=== PATIENT | male | born 1945 | race Caucasian/White ===

== ENCOUNTER 2016-10-05 09:00 | Observation (INO) | payer MEDICARE, OTHER ==
[~2016-10-05] VITALS: Ht 182.9 cm; Wt 98.5 kg
[~2016-10-05 09:00] MED LIST: AFRI0.052 EACH NARE; ALPR.25 PO; CLON0.1T PO; FLEC1TAB8 PO; LISI-519 PO; MECL-62 PO; MUCI30TA2 PO; PRED10PA PO; SYMB80AE INH; VENTAER INH; VERA120T3 PO; VITA100064 PO; VITA500T49 PO; VITA50TA30 PO; ZOLO50TA PO
[2016-10-05] MEDS ORDERED: SODIUM CHLORIDE 0.9% INJ 100 ML ONE (09:20)
[2016-10-05] MEDS ORDERED: ceFAZolin INJ 1,000 MG VIAL ONE (09:20)
[2016-10-05] MEDS ORDERED: OXYGENDME NAS.CANULA (09:28)
[2016-10-05 09:29] VITALS: BP 123/73; PULSE 76; RESP 20; TEMP 98.1; O2SAT 95
[2016-10-05] MEDS ORDERED: ceFAZolin 1,000 MG/NS 100 ML IV SCH ×2 (09:30)
[2016-10-05] MEDS ORDERED: SODIUM CHLORID 0.9% 500 ML IV PRN (09:45)
[2016-10-05] MEDS ORDERED: POVIDONE IODINE 5% (ANTISEPSIS KIT) 4 APPLICATIONS EACH NARE PRN (09:45)
[2016-10-05] MEDS ORDERED: METOPROLOL TARTRATE 25 MG TAB PO PRN (09:45)
[2016-10-05] MEDS ORDERED: INSULIN HUMAN REGULAR 1,000 UNITS/10 ML VIAL SQ PRN (09:45)
[2016-10-05] MEDS ORDERED: CHLORHEXIDINE GLUCONATE 2 % 1 PACK (2 CLOTHS) TOPICAL PRN (09:45)
[2016-10-05] MEDS ORDERED: LACTATED RINGER'S 1000 ML IV PRN (09:45)
[2016-10-05 09:49] LABS: AUTOMATED NEUTROPHIL # 6.3 TH/MM3 (1.8-7.7); BASOPHIL # 0.1 TH/MM3 (0-0.2); BASOPHIL % 0.9 % (0.0-2.0); EOSINOPHIL # 0.2 TH/MM3 (0-0.4); EOSINOPHIL % 1.5 % (0.0-4.0); HEMATOCRIT 39.8 % (39.0-51.0); HEMO FLAGS DIFF FINAL; LYMPH % 28.4 % (9.0-44.0); MEAN CELL VOLUME 86.4 FL (80.0-100.0); MEAN CORPUSCULAR HEMOGLOBIN 29.4 PG (27.0-34.0); MONO % 9.3 % (0.0-8.0); NEUT % 59.9 % (16.0-70.0); PLATELET COUNT 184 TH/MM3 (150-450); RED CELL DISTRIBUTION WIDTH 15.4 % (11.6-17.2); WHITE BLOOD COUNT 10.5 TH/MM3 (4.0-11.0)
[2016-10-05 10:02] LABS: PROTHROMBIN TIME - PATIENT 10.9 SEC (9.8-11.6)
[2016-10-05] MEDS ORDERED: MIDAZOLAM HCL 2 MG/2 ML VIAL ONE ×2 (10:30→12:35)
[2016-10-05] MEDS ORDERED: IOHEXOL 350 MG/ML 50 ML BTL (for RAD DIAG) ONE (12:00)
[2016-10-05] MEDS ORDERED: PHENYLEPH/NS 1000 MCG/10 ML SYR IV ONE (12:00)
[2016-10-05] MEDS ORDERED: PROPOFOL 200 MG/20 ML AMP IV ONE (12:00)
[2016-10-05] MEDS ORDERED: ePHEDrine/NS 25 MG/5 ML SYR IV ONE (12:00)
[2016-10-05] MEDS ORDERED: MORPHINE SULFATE 4 MG/ML INJ IV PUSH PRN (12:15)
[2016-10-05] MEDS ORDERED: ALPRAZolam 0.25 MG TAB PO PRN (12:15)
[2016-10-05] MEDS ORDERED: BELLADONNA ALKALOIDS/OPIUM 60 MG SUPP RECTAL PRN (12:15)
[2016-10-05] MEDS ORDERED: ACETAMINOPHEN 650 MG/20.3 ML UDC PO PRN (12:15)
[2016-10-05] MEDS ORDERED: ACETAMINOPHEN/HYDROcodone 325 MG/5 MG TAB PO PRN (12:15)
--- NOTE | 2016-10-05 12:24 | PD.OP ---
Operative Report Date of Surgery: Oct 05, 2016 Preoperative Diagnosis: Positive urine cytology with history of high-grade bladder cancer Postoperative Diagnosis: Positive urine cytology with history of high-grade bladder cancer and findings of small bladder tumor 0.5 cm in diameter Procedure: Cystoscopy with bilateral retrograde studies with bilateral collecting system washings, multiple bladder biopsies with fulguration Anesthesia: Spinal Surgeon: Laurent Parker Survival Equipment Repairer(s): None Resident Surgeon: None Operation and Findings: 71 year-old male with history of high-grade bladder cancer and recent positive urine cytology. Decision is made for patient to the operating room to undergo cystoscopy with bilateral retrograde study and bilateral urine cytologies from the collecting systems as well as possible TURBT. Risk and benefits were discussed preoperatively and he was willing to proceed. The patient was brought to the operating room identified by myself as Julio Burgos. He was placed in the dorsal lithotomy position, prepped and draped in the usual fashion , received preprocedure antibiotics, and spinal anesthesia was administered. 22 Lao cystoscope was inserted in the bladder using the 30 lens and there were some frondular tumor-like tissue located on the left area of the bladder neck. The posterior bladder wall was erythematous but no bladder tumor was identified. The trigone also look to have a frondular appearance with erythema present. Using the cold cup biopsy forcep bladder biopsies were taken from the left bladder neck region, trigone region and posterior wall. These were sent to pathology. A 5 Lao catheter was inserted in the left ureteral orifice and up the ureter into the kidney. Normal saline was used to flush the collecting system and this was sent for urine cytology. A left retrograde study was performed showing a normal collecting system and ureter. A 5 Lao opening catheter was inserted into the right ureteral orifice and extended up into the kidney where saline wash was performed. This was then sent to pathology. Retrograde study was then performed demonstrating a normal right collecting system and normal right ureter. The 22 Lao cystoscope was inserted back into the bladder with the 70 lens to evaluate these areas were clearly. The [place]rera resectoscope with the rollerball was then inserted and the small area was fulgurated on the left bladder neck region the trigone region and a larger the posterior wall. All areas of erythema were rollerballed. A 20 Lao [place] tip catheter was inserted at the completion procedure. He tolerated procedure well. He was awoken and transferred to recovery in stable condition. Laurent Parker DO Oct 05, 2016 12:24
[2016-10-05] MEDS ORDERED: DO NOT ADM ANY ANTICOAGULANT DRUGS PRN (12:45)
[2016-10-05] MEDS: SODIUM CHLOR 0.45% 1000 ML INJ 1,000 ML IV SCH (12:50)
[2016-10-05] MEDS: LISINOPRIL 5 MG TAB PO SCH (13:00)
[2016-10-05] MEDS: guaiFENesin E.R. 600 MG TAB PO SCH ×2 (13:00→20:32)
[2016-10-05] MEDS ORDERED: *RESP: ALBUTEROL 2.5 MG/3 ML NEB (PRN) PERIprocedural Use ONLY NEB ONE (13:16)
[2016-10-05] MEDS ORDERED: *morphine SULFATE 8 MG/ML PERIprocedure ONLY ONE (13:56)
[2016-10-05] MEDS ORDERED: ALBUTEROL SULFATE 90 MCG/ACT HFA 18 GM INHALER INH PRN ×2 (14:00→17:00)
[2016-10-05] MEDS: FLECAINIDE ACETATE 100 MG TAB PO SCH ×2 (14:30→21:00)
[2016-10-05] MEDS: BUDESONIDE-FORMOTEROL 80/4.5 MCG INHALER INH SCH ×2 (14:30→21:23)
[2016-10-05] MEDS: VERAPAMIL HCL 120 MG TAB PO SCH ×2 (14:30→21:00)
[2016-10-05 17:00] VITALS: BP 116/63; PULSE 68; RESP 18; TEMP 97.8; O2SAT 95
[2016-10-05 20:00] VITALS: BP 94/61; PULSE 75; RESP 18; TEMP 97; O2SAT 95
[2016-10-05] MEDS: ONDANSETRON HCL 4 MG/2 ML VIAL IV PUSH PRN (21:31)
[2016-10-05] MEDS: RESP: ALBUTEROL 2.5 MG/3 ML NEB (SCH) INH (22:45)
[2016-10-06] VITALS: BP 119/67; PULSE 71; RESP 18; TEMP 97.1; O2SAT 96
[2016-10-06] MEDS: RESP: ALBUTEROL 2.5 MG/3 ML NEB (SCH) INH ×3 (03:09→15:23)
[2016-10-06 04:00] VITALS: BP 103/57; PULSE 62; RESP 18; TEMP 97; O2SAT 94
[2016-10-06] MEDS: ONDANSETRON HCL 4 MG/2 ML VIAL IV PUSH PRN (04:40)
[2016-10-06] MEDS: SODIUM CHLOR 0.45% 1000 ML INJ 1,000 ML IV SCH (06:34)
[2016-10-06 08:00] VITALS: BP 121/76; PULSE 75; RESP 18; TEMP 96.8; O2SAT 94
--- NOTE | 2016-10-06 08:57 | HHI.PR ---
Subjective Patient symptoms today Pt seen and examined. c/o nausea. Urine clear. Objective Vital Signs Vital Signs Date Time Temp Pulse Resp B/P Pulse Ox O2 Delivery O2 Flow Rate FiO2 10/06/16 04:00 97.0 62 18 103/57 94 10/06/16 00:00 97.1 71 18 119/67 96 10/05/16 22:00 19 10/05/16 20:47 Nasal Cannula 2.00 10/05/16 20:00 97.0 75 18 94/61 95 10/05/16 17:00 97.8 68 18 116/63 95 10/05/16 17:00 97.9 63 24 121/76 95 Nasal Cannula 2 10/05/16 16:00 63 15 131/66 96 Nasal Cannula 2 10/05/16 15:00 59 20 120/63 94 Nasal Cannula 2 10/05/16 14:00 68 24 117/56 97 Nasal Cannula 2 10/05/16 13:15 70 20 129/62 98 Nasal Cannula 2 10/05/16 13:00 62 18 113/61 98 Nasal Cannula 2 10/05/16 12:45 60 17 104/55 97 Nasal Cannula 2 10/05/16 12:30 61 18 107/53 97 Nasal Cannula 2 10/05/16 12:19 97.5 72 18 91/54 96 Nasal Cannula 2 10/05/16 10:00 95 10/05/16 09:29 98.1 76 20 123/73 95 10/05/16 09:28 Nasal Cannula 2 Result Diagram: 10/05/16 0934 Objective Remarks Abd:soft,nt,nd Lira: clear urine Medications and IVs Current Medications Medications (Trade) Dose Ordered Sig/Melissa Route Start Time Stop Time Status Last Admin Lactated Ringer's 1,000 ml @ 30 mls/hr Q24H PRN IV 10/05/16 09:45 10/08/16 09:44 10/05/16 09:30 Sodium Chloride 500 ml @ 30 mls/hr [id number] PRN IV 10/05/16 09:45 10/08/16 09:44 Sodium Chloride 1,000 ml @ 84 mls/hr [id number] IV 10/05/16 13:00 10/06/16 06:34 (Ancef Inj/NS Inj) 100 ml @ 200 mls/hr Q8H IV 10/05/16 18:00 10/06/16 10:29 10/06/16 03:32 (B & O Supp) 60 mg Q6HR PRN RECTAL 10/05/16 12:15 10/05/16 13:15 (Symbicort 80-4.5 Mcg Inh) 2 puff Q12HR INH 10/05/16 14:30 10/05/16 21:23 (Xanax) 0.25 mg Q4H PRN PO 10/05/16 12:15 (Tambocor) 50 mg Q12HR PO 10/05/16 14:30 (Prinivil) 5 mg DAILY PO 10/05/16 13:00 (Isoptin) 120 mg Q12HR PO 10/05/16 14:30 (Mucinex Er) 600 mg BID PO 10/05/16 13:00 10/05/16 20:32 (Deltasone) 10 mg DAILY PO 10/06/16 09:00 (Tylenol 650 Mg/ 20 ml Liq) 650 mg Q6H PRN PO 10/05/16 12:15 (Morphine Inj) 1 mg Q3H PRN IV PUSH 10/05/16 12:15 ([place] 5-325 Mg) 2 tab Q6H PRN PO 10/05/16 12:15 10/05/16 20:24 Miscellaneous Information ALL NURSING DEPARTME... UNSCH PRN .XX 10/05/16 12:45 10/06/16 12:44 (Ventolin Hfa Inh) 1 puff Q4H PRN INH 10/05/16 17:00 (Zofran Inj) 4 mg Q6H PRN IV PUSH 10/05/16 21:30 10/06/16 04:40 Assessment and Plan Assessment and Plan Stable s/p cysto/Bladder bx with fulguration Void trial today D/C home later today. Laurent Parker DO Oct 06, 2016 08:56
[2016-10-06 09:00] VITALS: BP 105/67; PULSE 67
[2016-10-06] MEDS ORDERED: PANTOPRAZOLE SODIUM 40 MG VIAL IV PUSH SCH (09:00)
[2016-10-06] MEDS ORDERED: predniSONE 10 MG TAB PO SCH (09:00)
[2016-10-06] MEDS ORDERED: METOCLOPRAMIDE HCL 10 MG/2 ML VIAL IM PRN (09:00)
[2016-10-06] MEDS: VERAPAMIL HCL 120 MG TAB PO SCH (09:09)
[2016-10-06] MEDS: LISINOPRIL 5 MG TAB PO SCH (09:09)
[2016-10-06] MEDS: FLECAINIDE ACETATE 100 MG TAB PO SCH (09:09)
[2016-10-06] MEDS: guaiFENesin E.R. 600 MG TAB PO SCH (09:09)
[2016-10-06] MEDS: BUDESONIDE-FORMOTEROL 80/4.5 MCG INHALER INH SCH (09:14)
[2016-10-06 09:35] VITALS: O2SAT 94
[2016-10-06 12:00] VITALS: BP 100/68; PULSE 68; RESP 22; TEMP 97.2; O2SAT 91
--- NOTE | 2016-10-06 16:49 | EKG ---
Date Performed: 10/05/2016 Time Performed: 09:24:09 PTAGE: 71 years EKG: Sinus rhythm WITH SINUS ARRHYTHMIA When compared to previous tracing, no significant change. NORMAL ECG PREVIOUS TRACING : 02/12/2012 15.45 DOCTOR: Julio Brown Interpretating Date/Time 10/06/2016 16:47:12
[2016-11-21] MEDS ORDERED: FLUT50SP EACH NARE (10:26)
[2016-11-21] MEDS ORDERED: TICEINJ I-VESICULR (11:41)
[2016-11-28] MEDS ORDERED: FURO1TAB60 PO (10:07)
[2016-11-28] MEDS ORDERED: POTA10CA PO (10:08)
[2016-11-28] MEDS ORDERED: TICEINJ I-VESICULR (11:18)
[2016-12-05] MEDS ORDERED: TICEINJ I-VESICULR (11:09)
[2016-12-12] MEDS ORDERED: TICEINJ I-VESICULR (10:57)
== END 2016-10-06 17:18 | disposition home or self-care (01) ==
LOC: HSDC 09:00 → HOCB 16:52
PROVIDERS: ADMIT Urology; ATTEND Urology
PROC: 0TBB8ZX Excision of Bladder, Via Natural or Artificial Opening Endoscopic, Diagnostic (ICD-10-PCS; 2016-10-05)
PROC: 0TBC8ZX Excision of Bladder Neck, Via Natural or Artificial Opening Endoscopic, Diagnostic (ICD-10-PCS; principal; 2016-10-05 11:04)
DX: C67.5 Malignant neoplasm of bladder neck (principal); C67.0 Malignant neoplasm of trigone of bladder; J44.9 Chronic obstructive pulmonary disease, unspecified; Z99.81 Dependence on supplemental oxygen
CPT/HCPCS: 01922; 52204; 74420; 85025; 85610; 85730; 88112; 88307; 93005; 94640; 94664; 96365; 96375; 96376; C1769; C9113; G0378; J0690; J2250; J2270; J2370; J2405; J7120; J7512; J7613; Q9967

== ENCOUNTER 2017-07-05 10:07 | Observation (INO) | payer MEDICARE, OTHER ==
[~2017-07-05] VITALS: Ht 180.3 cm; Wt 98.5 kg
[~2017-07-05 10:07] MED LIST changes: -AFRI0.052 EACH NARE; +FLUT50SP EACH NARE; +FURO1TAB60 PO; -LISI-519 PO; +LISI2.5T3 PO; -MUCI30TA2 PO; +OXYGENDME NAS.CANULA; +POTA-163 PO; -VITA500T49 PO; -VITA50TA30 PO; -ZOLO50TA PO
[2017-07-05] MEDS ORDERED: ceFAZolin 1,000 MG/NS 100 ML IV SCH ×2 (10:45)
[2017-07-05] MEDS ORDERED: SODIUM CHLORID 0.9% 500 ML IV PRN (11:00)
[2017-07-05] MEDS ORDERED: INSULIN HUMAN REGULAR 1,000 UNITS/10 ML VIAL SQ PRN (11:00)
[2017-07-05] MEDS ORDERED: CHLORHEXIDINE GLUCONATE 2 % 1 PACK (2 CLOTHS) TOPICAL PRN (11:00)
[2017-07-05] MEDS ORDERED: METOPROLOL TARTRATE 25 MG TAB PO PRN (11:00)
[2017-07-05] MEDS ORDERED: LACTATED RINGER'S 1000 ML IV PRN (11:00)
[2017-07-05] MEDS ORDERED: POVIDONE IODINE 5% (ANTISEPSIS KIT) 4 APPLICATIONS EACH NARE PRN (11:00)
[2017-07-05 11:29] LABS: AUTOMATED NEUTROPHIL # 4.9 TH/MM3 (1.8-7.7); BASOPHIL # 0.1 TH/MM3 (0-0.2); BASOPHIL % 0.9 % (0.0-2.0); EOSINOPHIL # 0.2 TH/MM3 (0-0.4); EOSINOPHIL % 2.1 % (0.0-4.0); HEMATOCRIT 36.8 % (39.0-51.0); LYMPH % 26.8 % (9.0-44.0); LYMPHOCYTE # 2.2 TH/MM3 (1.0-4.8); MEAN CELL VOLUME 87.9 FL (80.0-100.0); MEAN CORPUSCULAR HEMOGLOBIN 28.6 PG (27.0-34.0); MEAN CORPUSCULAR HGB CONC 32.5 % (32.0-36.0); MEAN PLATELET VOLUME 8.2 FL (7.0-11.0); MONO % 10.8 % (0.0-8.0); MONOCYTE # 0.9 TH/MM3 (0-0.9); NEUT % 59.4 % (16.0-70.0); PLATELET COUNT 220 TH/MM3 (150-450); RED BLOOD COUNT 4.18 MIL/MM3 (4.50-5.90); RED CELL DISTRIBUTION WIDTH 16.7 % (11.6-17.2); WHITE BLOOD COUNT 8.3 TH/MM3 (4.0-11.0)
[2017-07-05] MEDS ORDERED: RESP: ALBUTEROL CONC 2.5 MG/0.5 ML NEB ONE (11:55)
[2017-07-05] MEDS ORDERED: PROPOFOL 200 MG/20 ML AMP IV ONE (12:00)
[2017-07-05] MEDS ORDERED: PHENYLEPHRINE HCL 10 MG/ML VIAL IV ONE (12:00)
[2017-07-05] MEDS ORDERED: PHENYLEPH/NS 1000 MCG/10 ML SYR IV ONE (12:00)
[2017-07-05] MEDS ORDERED: SUCCINYLCHOLINE CHLORIDE 100 MG/5 ML SYRINGE IV PUSH ONE (12:00)
[2017-07-05] MEDS ORDERED: ePHEDrine/NS 25 MG/5 ML SYRINGE IV ONE (12:00)
[2017-07-05] MEDS ORDERED: BUPIVACAINE PF 0.75% DEX-WATER INJ 2 ML AMP ONE (13:09)
[2017-07-05] MEDS ORDERED: MECLIZINE HCL 25 MG TAB PO PRN (14:15)
[2017-07-05] MEDS ORDERED: ALPRAZolam 0.25 MG TAB PO PRN (14:15)
[2017-07-05] MEDS ORDERED: ALBUTEROL SULFATE 90 MCG/ACT HFA 8 GM INHALER INH PRN (14:15)
[2017-07-05] MEDS ORDERED: DO NOT ADM ANY ANTICOAGULANT DRUGS PRN (14:27)
[2017-07-05] MEDS ORDERED: KETOROLAC TROMETHAMINE 30 MG/ML (IVP) VIAL IV PUSH PRN (14:30)
[2017-07-05] MEDS ORDERED: BELLADONNA ALKALOIDS/OPIUM 60 MG SUPP RECTAL PRN (14:30)
[2017-07-05] MEDS: cloNIDine HCL 0.1 MG TAB PO SCH ×2 (14:30→20:49)
--- NOTE | 2017-07-05 14:30 | PD.OP ---
Operative Report Date of Surgery: July 05, 2017 Preoperative Diagnosis: Noninvasive high-grade bladder cancer Postoperative Diagnosis: Same Procedure: Cystoscopy with bladder biopsy and fulguration Anesthesia: Spinal Surgeon: Laurent Parker Product Support Analyst(s): None Resident Surgeon: None Operation and Findings: 72-year-old male with history of noninvasive high-grade bladder cancer diagnosed in September 2016. Tumor was involving the trigone and near the left ureteral orifice. This was resected at that time. He then went on to receive a 6 weeks course of BCG. Follow-up cystoscopy in the office showed some areas of erythema and decision made to bring the patient to the operating room to undergo cystoscopy with biopsy with fulguration. Risk and benefits were discussed preoperatively he was willing to proceed. The patient was brought to the operating room and identified by myself as Julio Burgos. He was placed in dorsal lithotomy position, prepped and draped in sterile fashion, received preprocedure antibiotics and spinal anesthesia was administered. 22 [place] cystoscope was inserted in the bladder and [place] cystoscopy demonstrated some small areas of erythema located at the prior tumor resection site. Initially the 30 lens was used and then the 70 lens was also used to look at the surrounding bladder neck area. No tumors were identified. Reinserting the 30 lens with the cystoscope a cold cup biopsy was taken of the prior tumor bed. This was then sent to pathology. The area was then fulgurated with [place] cautery. Both ureteral orifice was identified. Hemostasis was obtained and a 16 [place] Lira catheter was inserted completion of the procedure. He tolerated the procedure well and was stable throughout the entire procedure. Laurent Parker DO July 05, 2017 14:30
[2017-07-05] MEDS ORDERED: MIDAZOLAM HCL 2 MG/2 ML VIAL ONE (14:38)
[2017-07-05] MEDS: SODIUM CHLOR 0.9% 1000 ML INJ 1,000 ML IV SCH (14:45)
[2017-07-05] MEDS ORDERED: *RESP: ALBUTEROL 2.5 MG/3 ML NEB (PRN) PERIprocedural Use ONLY NEB ONE (15:01)
[2017-07-05 15:50] LABS: HEMATOCRIT 36.6 % (39.0-51.0); MEAN CORPUSCULAR HEMOGLOBIN 28.8 PG (27.0-34.0); MEAN CORPUSCULAR HGB CONC 32.7 % (32.0-36.0); MEAN PLATELET VOLUME 7.9 FL (7.0-11.0); PLATELET COUNT 202 TH/MM3 (150-450); RED BLOOD COUNT 4.16 MIL/MM3 (4.50-5.90); RED CELL DISTRIBUTION WIDTH 16.3 % (11.6-17.2); WHITE BLOOD COUNT 8.5 TH/MM3 (4.0-11.0)
[2017-07-05] MEDS: BUDESONIDE-FORMOTEROL 80/4.5 MCG INHALER INH SCH (16:00)
[2017-07-05] MEDS ORDERED: PILL SPLITTER OTHER PRN (16:00)
[2017-07-05 16:15] LABS: BICARBONATE 29.7 MEQ/L (21.0-32.0); CALCIUM 8.4 MG/DL (8.5-10.1); CREATININE 1.18 MG/DL (0.60-1.30)
[2017-07-05 16:50] VITALS: BP 124/76; PULSE 76; RESP 18; TEMP 97.4; O2SAT 99
[2017-07-05] MEDS: FLECAINIDE ACETATE 100 MG TAB PO SCH (18:42)
--- NOTE | 2017-07-05 19:53 | EKG ---
Date Performed: 07/05/2017 Time Performed: 11:24:06 PTAGE: 72 years EKG: Sinus rhythm WITH OCCASIONAL VENTRICULAR PREMATURE COMPLEXES BORDERLINE ECG Since the PREVIOUS TRACING , no significant change noted PREVIOUS TRACIN10/05/2016 09.24 DOCTOR: Buzz Cheema Interpretating Date/Time 07/05/2017 19:51:32
[2017-07-05 20:00] VITALS: BP 141/79; PULSE 73; RESP 19; TEMP 97.4; O2SAT 97
[2017-07-05 20:32] VITALS: O2SAT 99
[2017-07-05] MEDS: FLUTICASONE PROPIONATE 50 MCG/ACT 16 GM NASAL SPRAY NASAL SCH (20:50)
[2017-07-06] VITALS: BP 124/55; PULSE 76; RESP 19; TEMP 97.8; O2SAT 94
[2017-07-06 04:00] VITALS: BP 131/77; PULSE 70; RESP 18; TEMP 97.1; O2SAT 94
[2017-07-06] MEDS: BUDESONIDE-FORMOTEROL 80/4.5 MCG INHALER INH SCH (04:05)
[2017-07-06] MEDS: SODIUM CHLOR 0.9% 1000 ML INJ 1,000 ML IV SCH (04:05)
[2017-07-06] MEDS: FLECAINIDE ACETATE 100 MG TAB PO SCH (06:07)
[2017-07-06 08:00] VITALS: BP 166/76; PULSE 76; RESP 21; TEMP 97.4; O2SAT 94
--- NOTE | 2017-07-06 08:18 | HHI.PR ---
Subjective Patient symptoms today Pt seen and examined. Feels well. Objective Vital Signs Vital Signs Date Time Temp Pulse Resp B/P (MAP) Pulse Ox O2 Delivery O2 Flow Rate FiO2 07/06/17 04:00 97.1 70 18 131/77 (95) 94 07/06/17 00:00 97.8 76 19 124/55 (78) 94 07/05/17 20:32 99 21 07/05/17 20:00 97.4 73 19 141/79 (99) 97 07/05/17 16:50 97.4 76 18 124/76 (92) 99 07/05/17 16:30 67 20 141/70 (93) 97 Nasal Cannula 3 07/05/17 16:15 68 20 144/69 (94) 97 Nasal Cannula 3 07/05/17 16:00 65 20 139/63 (88) 97 Nasal Cannula 3 07/05/17 15:45 66 20 140/71 (94) 97 Nasal Cannula 3 07/05/17 15:30 66 20 130/77 (94) 97 Nasal Cannula 3 07/05/17 15:15 63 20 136/65 (88) 97 Nasal Cannula 3 07/05/17 15:00 62 20 136/63 (87) 97 Nasal Cannula 3 07/05/17 14:45 63 20 128/59 (82) 97 Nasal Cannula 3 07/05/17 14:25 97.4 59 20 131/82 (98) 97 Nasal Cannula 4 07/05/17 11:40 98.8 77 24 149/84 (105) 96 Intake & Output 07/06/17 07/06/17 07:00 19:00 Intake Total 460 ml Balance 460 ml Intake Oral 360 ml IV Total 100 ml Result Diagram: 07/05/17 1530 07/05/17 1530 Objective Remarks Abd:soft,nt,nd Lira out. Medications and IVs Current Medications Medications (Trade) Dose Ordered Sig/Melissa Route Start Time Stop Time Status Last Admin Cefazolin Sodium 1000 mg/Sodium Chloride 100 ml @ 200 mls/hr JIG HAND IV 07/05/17 10:45 07/08/17 10:44 Cefazolin Sodium 1000 mg/Sodium Chloride 100 ml @ 200 mls/hr Q8H IV 07/05/17 21:30 07/06/17 13:59 07/06/17 05:30 (Proair Hfa Inh) 2 puff Q4H PRN INH 07/05/17 14:15 07/05/17 20:48 (Catapres) 0.1 mg Q12HR PO 07/05/17 14:30 07/05/17 20:49 (Symbicort 80-4.5 Mcg Inh) 2 puff Q12H INH 07/05/17 16:00 07/06/17 04:05 (Xanax) 0.25 mg Q4H PRN PO 07/05/17 14:15 (Tambocor) 50 mg Q12H PO 07/05/17 17:00 07/06/17 06:07 (Antivert) 25 mg Q8H PRN PO 07/05/17 14:15 (Deltasone) 10 mg DAILY PO 07/06/17 09:00 (Flonase Francis Spr) 1 spray BID NASAL 07/05/17 21:00 (Lasix) 40 mg DAILY PO 07/06/17 09:00 (KCl) 20 meq DAILY PO 07/06/17 09:00 (Prinivil) 2.5 mg DAILY PO 07/06/17 09:00 (Isoptin) 120 mg DAILY PO 07/06/17 09:00 Sodium Chloride 1,000 ml @ 70 mls/hr [id number] IV 07/05/17 14:15 07/05/17 14:45 (B & O Supp) 60 mg Q6HR PRN RECTAL 07/05/17 14:30 (Toradol Inj) 15 mg Q6H PRN IV PUSH 07/05/17 14:30 07/10/17 14:29 (Pill Splitter) 1 ea UNSCH PRN OTHER 07/05/17 16:00 ([facility] [place] [facility] ALL NURSING DEPARTME... UNSCH PRN .XX 07/05/17 14:27 07/06/17 14:26 Assessment and Plan Assessment and Plan Stable s/p cysto with bladder bx Void trial Breathing treatment prior to discharge F/U in a few weeks in office. Laurent Parker DO July 06, 2017 08:18
[2017-07-06] MEDS ORDERED: RESP: ALBUTEROL 2.5 MG/3 ML NEB (SCH) NEB (09:00)
[2017-07-06] MEDS: FLUTICASONE PROPIONATE 50 MCG/ACT 16 GM NASAL SPRAY NASAL SCH (09:00)
[2017-07-06] MEDS ORDERED: LISINOPRIL 5 MG TAB PO SCH (09:00)
[2017-07-06] MEDS ORDERED: VERAPAMIL HCL 120 MG TAB PO SCH (09:00)
[2017-07-06] MEDS ORDERED: FUROSEMIDE 40 MG TAB PO SCH (09:00)
[2017-07-06] MEDS ORDERED: POTASSIUM CHLORIDE 20 MEQ CONTROLLED RELEASE TAB PO SCH (09:00)
[2017-07-06] MEDS ORDERED: predniSONE 10 MG TAB PO SCH (09:00)
[2017-07-06 10:05] VITALS: O2SAT 94
[2017-07-06] MEDS: cloNIDine HCL 0.1 MG TAB PO SCH (10:10)
[2017-07-06] MEDS ORDERED: PHENYLEPH/NS 1000 MCG/10 ML SYR IV ONE (11:02)
[2017-07-06] MEDS ORDERED: PROPOFOL 200 MG/20 ML AMP IV ONE (11:02)
[2017-07-06] MEDS ORDERED: SUCCINYLCHOLINE CHLORIDE 100 MG/5 ML SYRINGE IV PUSH ONE (11:02)
[2017-07-06] MEDS ORDERED: ePHEDrine/NS 25 MG/5 ML SYRINGE IV ONE (11:02)
[2017-07-06] MEDS ORDERED: PHENYLEPHRINE HCL 10 MG/ML VIAL IV ONE (11:02)
== END 2017-07-06 11:03 | disposition home or self-care (01) ==
LOC: HSDC 10:07 → HSDI 14:22 → N06B 16:43
PROVIDERS: ADMIT Urology; ATTEND Urology
DX: N30.20 Other chronic cystitis without hematuria (principal); C67.9 Malignant neoplasm of bladder, unspecified; I10 Essential (primary) hypertension; J44.9 Chronic obstructive pulmonary disease, unspecified; I48.91 Unspecified atrial fibrillation; R51 Headache; E78.00 Pure hypercholesterolemia, unspecified; M19.90 Unspecified osteoarthritis, unspecified site
CPT/HCPCS: 00910; 52204; 80048; 85025; 85027; 88307; 93005; 94150; 94664; 96365; 96366; G0378; J0330; J0690; J2250; J2370; J7030; J7120; J7512; J7613; J7611